=== PATIENT | female | born 1955 | race Caucasian/White ===

== ENCOUNTER → 2018-04-06 18:44 | Outpatient (REF) | payer BC, SELFPAY | LOC: LAB 18:44 | PROVIDERS: Visit Provider Dermatology MOHS-Micrographic Surgery | DX: Z48.817 Encounter for surgical aftercare following surgery on the skin and subcutaneous tissue (principal) | CPT/HCPCS: 87070; 87075; 87205 ==

== ENCOUNTER → 2022-12-15 09:34 | Outpatient (CLI) | payer BC, SELFPAY ==
--- NOTE | 2022-12-15 | DI.CT.S_ITS ---
PROCEDURE: CT LUMBAR SPINE WO CON INDICATIONS: Spinal stenosis lumbar TECHNIQUE: Noncontrast 3 mm thick sections acquired from the T12 level to the sacrum. Sagittal and coronal reformats were constructed. For radiation dose reduction, the following was used: automated exposure control. COMPARISON: None. FINDINGS: Image quality: Excellent. Bones: Degenerative grade 1 anterior spondylolisthesis L4-5. No acute vertebral body compression fractures. No suspicious lytic or blastic bony lesions. No pars defects. T12-L1: Unremarkable L1-L2: Disc height is preserved. Mild circumferential disc bulge. No central or foraminal stenosis. L2-L3: Mild disc space narrowing and circumferential disc bulge with hypertrophic facet joints. Mild central and no foraminal stenosis. L3-L4: Disc space narrowing with vacuum disc phenomena present. Disc bulge combines with hypertrophic facet joints and ligamentum flavum laxity to result in moderate central stenosis. Moderate bilateral foraminal stenosis L4-L5: Disc space narrowing and circumferential disc bulge with hypertrophic facet joints and ligamentum flavum laxity all combined result in severe central stenosis. Moderate bilateral foraminal stenosis L5-S1: Disc height is preserved. Mild central stenosis. Mild bilateral foraminal stenosis Soft tissues: No retroperitoneal masses or hematomas. Visualized aorta is normal in caliber. IMPRESSION: Multilevel degenerative disc disease and arthropathy results in varying degrees of central and foraminal stenosis including severe central stenosis L4-5 Approved by: Tristen Lozada M.D. on 12/15/2022 at 12:39
== END ==
PROVIDERS: Referring Provider Orthopaedic Surgery Orthopaedic Surgery of the Spine; Visit Provider Orthopaedic Surgery Orthopaedic Surgery of the Spine
DX: M48.062 Spinal stenosis, lumbar region with neurogenic claudication (principal); M51.36 Other intervertebral disc degeneration, lumbar region; M47.816 Spondylosis without myelopathy or radiculopathy, lumbar region
CPT/HCPCS: 72131

== ENCOUNTER 2023-05-25 10:48 | Inpatient (IN) | payer BC, MEDICARE, SELFPAY ==
[2023-05-12 07:32] VITALS: BMI 25.5
[2023-05-25] VITALS (16 sets, daily range): BP systolic 102–136; BP diastolic 44–84; PULSE 64–79; RESP 12–25; TEMP 36.2–36.8; O2SAT 93–100; BMI 25.5
[2023-05-25] MEDS: LACTATED RINGERS 1,000 ML 42 ML IV ×2 (11:45→14:20)
--- NOTE | 2023-05-25 12:23 | SUR.OPER ---
Prone on spine table, head in foam head support, padded chest and pelvic supports, gel pad at knees, lower legs supported by pillows; nipples, genitalia and toes free of pressure, arms secured on foam padded arm boards at <90 degrees abduction. Tape over blanket at thigh secured to table.
[2023-05-25] MEDS: CLINDAMYCIN 900 MG/50 ML PIGGYBACK 50 MG IV ×2 (13:14→23:07)
[2023-05-25] MEDS: BUPIVACAINE LIPOSOME 266 MG/20 ML VIAL INJ (13:27)
[2023-05-25] MEDS: BUPIVACAINE 0.25% W/ EPI (PF) 10 ML VIAL 20 ML INJ (13:28)
[2023-05-25 13:47] LABS: BUN Creatinine Ratio 24.1 (6-22); Blood Urea Nitrogen 13 mg/dL (7-17); Carbon Dioxide 21 mmol/L (22-32); Chloride 104 mmol/L (98-107); Estimated Glomerular Filt Rate > 60 mL/min (>60); Glucose 89 mg/dL (80-110); HEMOLYSIS < 15 (0-50); Potassium 3.4 mmol/L (3.4-5.1); Sodium 131 mmol/L (137-145)
--- NOTE | 2023-05-25 16:33 | DI.RAD.S_ITS ---
PROCEDURE: XR LUMBAR SPINE 2-3V INDICATIONS: L3-4, L4-5 TLIF ROBOT TECHNIQUE: Fluoroscopic guidance utilized for a surgical fusion COMPARISON: None. FINDINGS: Fluoroscopic images submitted for a surgical fusion L3 through L5. Please see operative note for further discussion. IMPRESSION: Fluoroscopic guidance. Dictated by: Shaun Vásquez M.D. on 05/25/2023 at 16:46 Approved by: Shaun Vásquez M.D. on 05/25/2023 at 16:47
--- NOTE | 2023-05-25 16:53 | P.OP_ITS ---
Operative Date/Time/Diagnoses Date of procedure: 05/25/23 Time of procedure: 13:00 Pre-op diagnosis: 1. L3-4, L4-5 spondylolisthesis 2. L3-4 far lateral disc herniation with radiculopathy Post-op diagnosis: same Procedure & Clinicians Procedure: 1. L3-4, L4-5 Postero-lateral and posterior interbody fusion 2. L3-4, L4-5 interbody cage placement. 3. L3-4, L4-5 decompressive laminectomy with bilateral facetecomies 4. L3-4, L4-5 Posterior segmental instrumentation 5. [place] of bone marrow from iliac crest 6. Utilization of microsurgical technique and operating microscope 7. Utilization of robotic assisted navigation Same procedure as scheduled: Yes Indications: Patient has been having chronic back pain and worsening lumbar radiculopathy, left worse than right. Patient was found have a L3-4 left far lateral disc herniation with foraminal stenosis causing radiculopathy as well as L3-4 L4-5 spondylolisthesis contributing to back pain and leg pain. Patient failed multiple conservative management with worsening pain weakness and numbness in her lower extremity. Patient has been having difficulty performing activity of daily living. After discussing risks benefits of treatment options, patient elected proceed with surgery. Surgeon: Shelly Camilo Water Resource Consultant: Vida Herrera Click Yes if Unassisted: No Anesthesia Type: General Operative Notes Closure Type: primary Specimen(s): none sent Prosthetic devices, grafts, tissues, transplants, or devices: Globus CREO MIS screws, Rise cages Applied: catheter Estimated Blood Loss (mL): 150 Blood products transfused: none Procedure in detail: Patient was seen in the preoperative area. Risks and benefits of the surgery was discussed with the patient. Informed consent was obtained from the patient and placed in the chart. Surgical site was marked. Patient was taken to the operative room. General anesthesia was administered. Prophylactic antibiotic was given to the patient less than 30 min before the incision was made. Patient was placed into a prone position on the Junior table. Patient's back was then prepped and draped in the sterile fashion. Time-out was performed at this time. After patient was prepped and draped, patient's PSIS was palpated and marked bilaterally. Small 1 cm incision was made over the PSIS for placement of the reference probes. Two trocar was placed into the PSIS 1 on each side. The reference probe was attached to the trocar of the reference apparatus. At this time the C-arm imaging was used to confirm AP and lateral of L3, L4-L5 vertebrae and merged the C-arm imaging using the AppwoRx robotic navigation system with the CT of the lumbar spine. After successful merging was completed and confirmed, skin marker was used to shama out the skin incision using the AppwoRx robotic arm. Bilateral incision was made at this time. Pre templated trajectory was used and guided using the AppwoRx robotic navigation system for bilateral L3 L4, L5 pedicle screw placement. This was done by using the robotic arm to guide the high-speed bur to make a cortical entry point. Next a drill was placed also using the robotic arm and guided using the navigation system drilling partially through bilateral L3, L4, L5 p edicles. Next L3, L4, L5 pedicle screws it was pre templated and measured was placed onto the power national flatbed truck driver and inserted into the pedicles bilaterally. After all 6 screws were placed C-arm imaging was taken of both AP and lateral to confirm the placement. Excellent placement of the screws were confirmed and a matched precisely with the pre planned screw placement using the navigation system. MARs retractor was inserted using [employer] guidence. Globus MARS retractors was placed inside the incision and docked onto the L3, L4 lamina. Using microsurgical technique and operating microscope, a L3, L4 laminectomy and L3-4, L4-5 facetectomy was performed using a [place] rongeur. The laminectomy and facetectomy was performed in order to decompress patient's cauda equina as well as the nerve roots exiting at the L3-4, L4-5 level. Patient was found have severe lateral recess and neural foramen stenosis which was fully decompressed after the laminectomy facetectomy. Patient was found have a large L3-4 left- sided far lateral disc herniation impinging on the L3 nerve root on the left side. After the diskectomy was completed there was no impingement of any sort on the left L3 nerve root. More than 75% of the facets were removed during the process of decompression rendering L3-4, L4-5 level grossly unstable and required a fusion procedure at the same time. The disc space at L3-4, L4-5 was identified, and a total diskectomy was performed at L3-4, L4-5 level. The endplates were decorticated using a rasp and shaver. The total diskectomy and decortication was performed at L3-4, L4-5 level in order to to accomplish a L3- 4, L4-5 fusion. The local bone from the laminectomy and facetectomy was saved for local bone grafting. After the total diskectomy and decortication was completed, Trifecta bone graft material was combined with local bone that was harvested earlier. At this time, a separate skin is incision was made over the iliac crest. A Jamshidi needle was inserted into the iliac crest through a separate skin incision. 5 cc of bone marrow aspiration was obtained through the separate skin incision using a Jamshidi needle from the iliac crest. The bone marrow aspiration was combined with local bone and the Trifecta bone grafting material. The bone grafting material was placed into the L3-4, L4-5 interbody space along with expandable cages. One cage each was inserted into the L3-4 L4-5 interbody space along with bone graft material. The cage was expanded to its maximum height using the torque limiting screwdriver. The disc preparation as well as the cage insertion were also performed under navigation guidance. After the cage was placed, AP and lateral C-arm imaging was taken to confirm placement of the cage and excellent position was confirmed. Globus MARS retractor was inserted and docked onto the L3-4, L4-5 posterolateral gutter on the right side. Using the power drill, posterior-lateral decortication was performed at L3-4, L4-5 level until bleeding cortical bone was identified. The remaining bone grafting material was placed into the L3-4, L4-5 posterior lateral gutter he order to accomplish posterolateral fusion at the L3- 4, L4-5 level. At this time the tulips were attached to the L3, L4-L5 pedicle screw shanks. After measuring the length of the rods, they were inserted into the tulips of the pedicle screws and locked in place using locking caps and torque limiting screwdriver bilaterally. Total 6 caps and 2 titanium rods was used in order to complete the posterior instrumentation construct. After all the hardware was placed, and confirmed with AP and lateral C-arm imaging, the wound was then irrigated with sterile normal saline and packed with Ray-Arslan gauze for 3 min to accomplish hemostasis. After the gauze was removed the deep fascia was closed with #1 Vicryl suture. The subcutaneous layer was closed with 2-0 Vicryl. The skin was closed with skin nazia. Patient tolerated the procedure well. There were no complications. The Operation could not have been safely performed without compromising the technical result or length of the procedure, without the assistance of a skilled surgical training specialist. The surgical training specialist was medically necessary for proper positioning, retraction and manipulation of instruments, proper exposure, surgical preparation, and manipulation of tissue. Neuro monitoring system was used to monitor patient's neurologic status throughout entire procedure. There was no disturbance of the neural monitoring signals throughout the case. Complications: none Post-operative Condition: stable Disposition: PACU Plan for aftercare: Admit to inpatient hospital
[2023-05-25] MEDS: hydrOXYzine 50 MG/ML INJ 25 MG IM (17:11)
[2023-05-25] MEDS: OXYCODONE IR 5 MG TABLET PO (17:11)
[2023-05-25] MEDS: GABAPENTIN 600 MG TABLET PO (17:19)
[2023-05-25] MEDS: LORazepam 0.5 MG TABLET PO (17:48)
[2023-05-25] MEDS: LORazepam 2 MG/ML INJ 0.25 MG IV ×2 (17:52→18:11)
[2023-05-25] MEDS: ACETAMINOPHEN IV 1,000 MG/100 ML VIAL 400 MG IV (18:06)
--- NOTE | 2023-05-25 19:17 | PC.NURSE ---
Pt arrived from PACU at 1847, VSS on 2L NC, very lethargic and will not open eyes but able to accurately answer some orientation questions, gauze and medipore dressing to back c/d/i. Sensation intact to bilat LE. Patient and spouse oriented to room and call light. Bed in low position, bed alarm activated, call light within reach, SCDs on.
[2023-05-25] MEDS: LACTATED RINGERS 1,000 ML 125 ML IV (20:14)
[2023-05-25] MEDS: BRIVARACETAM 25 MG 25 EACH PO (23:06)
[2023-05-25] MEDS: OXYCODONE IR 10 MG TABLET PO (23:45)
[2023-05-25] MEDS: ONDANSETRON 4 MG/2 ML INJ IV (23:46)
[2023-05-26] VITALS: BP 103/54; PULSE 77; RESP 16; TEMP 36.5; O2SAT 97
[2023-05-26 04:00] VITALS: BP 104/56; PULSE 74; RESP 15; TEMP 36.2; O2SAT 98
[2023-05-26 04:53] LABS: Hematocrit 34.6 % (36-46); Hemoglobin 11.7 g/dL (12.0-16.0)
[2023-05-26] MEDS: OXYCODONE IR 10 MG TABLET PO ×2 (04:58→08:36)
[2023-05-26] MEDS: CLINDAMYCIN 900 MG/50 ML PIGGYBACK 50 MG IV (04:59)
[2023-05-26] MEDS: ONDANSETRON 4 MG/2 ML INJ IV ×2 (05:01→17:20)
[2023-05-26 05:08] LABS: BUN Creatinine Ratio 15.9 (6-22); Blood Urea Nitrogen 10 mg/dL (7-17); Calcium 7.9 mg/dL (8.4-10.2); Carbon Dioxide 24 mmol/L (22-32); Chloride 105 mmol/L (98-107); Estimated Glomerular Filt Rate > 60 mL/min (>60); Glucose 98 mg/dL (80-110); HEMOLYSIS < 15 (0-50); Potassium 3.6 mmol/L (3.4-5.1); Sodium 132 mmol/L (137-145)
[2023-05-26] MEDS: LACTATED RINGERS 1,000 ML 125 ML IV (05:15)
[2023-05-26 08:51] VITALS: BP 106/48; PULSE 74; RESP 22; TEMP 36.9; O2SAT 94
--- NOTE | 2023-05-26 08:59 | PC.NURSE ---
Addendum entered by Concetta Carrillo R.N. 05/26/23 10:51: Blood Pressure medication held at this time as she has been running low. She also worked with physical therapy this am and she was orthostatic with a drop of 10 points. She is resting on her side now. Original Note: Patient is alert and oriented x4, she states that her pain is 10 but she is groggy. Patient requested only 5mg of po oxycodone, this is what was given to her along with her home medications. Patient states that she had a fall on her head about a year ago, she had a concussion and has since developed a seizure disorder. She does take medication for this. Back dressing is cdi, patient is tolerating some of her breakfast. She has not been up yet with physical therapy. at bedside, he is helpful with care of patient.
[2023-05-26] MEDS: ACETAMINOPHEN 325 MG TABLET 650 MG PO ×2 (09:10→17:23)
[2023-05-26] MEDS: ATORVASTATIN 20 MG TABLET PO (09:10)
[2023-05-26] MEDS: POTASSIUM CHLORIDE 20 MEQ TAB 40 MEQ PO (09:10)
[2023-05-26] MEDS: DOCUSATE 100 MG CAPSULE PO ×2 (09:11→20:03)
[2023-05-26] MEDS: BRIVARACETAM 25 MG 25 EACH PO ×2 (09:11→20:03)
--- NOTE | 2023-05-26 09:58 | OT.IP.EVAL ---
Current Diagnoses Spondylolisthesis, lumbar region (05/25/23) Spinal stenosis, lumbar region with neurogenic claudication (05/25/23) Surgery Performed Operation Date: 05/25/23 12:15 Actual Procedures p L3-4, L4-5 TLIF with posterior instrumentation -Robot - Shelly Camilo MD Past Medical History (Last Updated 05/12/23 @ 07:50 by Sandra Forman, RN) Asthma BCC (basal cell carcinoma) Cerebral aneurysm Depression DJD (degenerative joint disease) Epilepsy Fall (05/2022) History of COVID-19 (07/26/21) History of Mohs micrographic surgery for skin cancer HLD (hyperlipidemia) HTN (hypertension) Hx of syncope PMR (polymyalgia rheumatica) Seizures Surgical History (Last Updated 05/11/23 @ 13:27 by Sandra Forman, SONYA) History of arthroscopy of right shoulder History of loop recorder (03/01/23) History of surgical procedure (02/27/19) Hx of tonsillectomy Occupational Therapy Inpatient Evaluation/Re-Eval M1 PT/OT-IP Prior Functional Status Start: 05/26/23 09:38 Freq: NEEDED Status: Active Protocol: Document 05/26/23 12:23 CGR (Rec: 05/26/23 12:42 CGR [id number]) Medical Review Prior Functional Status Medical History Reviewed Yes Diet/Fluid Consistency Regular Communication WNLs per pt and Mobility and Gait I without AD in the home and store, limited ambulation tolerance Activities of Daily Living and IADL's Pt and report I with difficulty Social History Household Members spouse,children Living Arrangements House Number of Floors (Floors) Two Floors Number of Stairs To Enter/Railing? Pt can stay on one floor where there is a bed and half bath and there are 2 steps to enter with no rails Home Environment High Toilet,Walk in Shower, Built-In Shower Seat Home Equipment Front Wheel Walker,Straight Cane,Raised Toilet Seat Without Armrests,Hand Held Shower,Broach Setter,Grab Bars In Shower Employment Status Retired M2 OT-IP Current Condition Start: 05/26/23 12:23 Freq: Status: Active Protocol: Document 05/26/23 12:23 CGR (Rec: 05/26/23 12:42 CGR [id number]) Occupational Therapy Current Condition Current Condition Evaluation Date 03/14/24 Treatment Diagnosis L3-5 TLIF Diagnosis Onset Date 05/25/23 Post Operative Precautions Lumbar Precautions Log Roll,No Twisting,Limit Bending,Lifting Restriction of 10 lbs,Gait Belt above Incisional Area M3 OT- IP Subjective and Pain Start: 05/26/23 12:23 Freq: Status: Active Protocol: Document 05/26/23 12:23 CGR (Rec: 05/26/23 12:42 CGR [id number]) OT- Subjective Occupational Therapy Visit Type Type Initial Evaluation Visit Start Time 09:31 Visit Stop Time 09:58 Notes Pt's present throughout session. P.T. entered after OT had Pt sitting EOB. OT Pain Assessment Pain When Pain Assessed At Rest Pain Present Pain Present Denied Pain M4 OT- IP ADL's Start: 05/26/23 12:23 Freq: Status: Active Protocol: Document 05/26/23 12:23 CGR (Rec: 05/26/23 12:42 CGR [id number]) OT HLC-Hndf-Wuprgcy Comments OT Self-Feeding Comments not meal time OT ADL-Grooming Comments OT Grooming Comments not performed OT ADL-Oral Care Comments Oral Care Comments not performed OT ADL-Dressing General Eval Lower Body Dressing Ability Total Assistance Areas Needing Assistance Socks Comments OT Dressing Comments supine in bed OT ADL-Toileting General Evaluation Toileting Ability Total Assistance Comments OT Toileting Comments pt with dubon and aware that she has dubon OT ADL-Bathing Comments OT Bathing Comments not performed M5 OT- IP IADL's Start: 05/26/23 12:23 Freq: Status: Active Protocol: Document 05/26/23 12:23 CGR (Rec: 05/26/23 12:42 CGR [id number]) OT-Instrumental Activities of Daily Living Deficits IADL Deficits Identified Deficits Home Safety Awareness Awareness of Need for Assistance at Home Good Awareness Ability to Problem Solve Emergency Able to Problem Solve Situations Medication Management Medication Management Caregiver Administers Money Management Money Management Caregiver Provides Assistance Meal Preparation Meal Preparation Caregiver Provides Assist Ladle Filler Ladle Filler Caregiver Provides Assist Driving Driving Comments Pt does not drive at baseline d/t new onset seziures. M6 OT- IP Functional Cognition Start: 05/26/23 12:23 Freq: Status: Active Protocol: Document 05/26/23 12:23 CGR (Rec: 05/26/23 12:42 CGR [id number]) Cognitive Factors Limiting Selfcare Function Cognitive Ability Level of Alertness Alert Patient Orientation Name,Age,Birthday,Month,Date, Year,Day of Week,Place, Situation Attention Span Ability Capable of Focused Attention, Capable of Sustained Attention Cognitive Comments Cognitive Assessment Comments Pt was able to answer questions but was unable to follow directions with moving her body, even with simple directions like to reach towards a rail. OT- Vision and Hearing OT- Hearing Assessment OT- Hearing Assessment WFL OT- Vision Assessment Visual Acuity Glasses For Reading Visual Attentiveness WFL Occular Pursuits WFL M7 OT- IP Mobility and Balance Start: 05/26/23 12:23 Freq: Status: Active Protocol: Document 05/26/23 12:23 CGR (Rec: 05/26/23 12:42 CGR [id number]) OT- Bed Mobility Assessment Rolling Type of Rolling Log Rolling,Roll to Left Level of Assistance Total Assistance,1 Person Assistance Supine to Sit Supine to Sit Assist Total Assistance,1 Person Assistance Sit to Supine Sit to Supine Assist Total Assistance,2 Person Assistance Scooting Scooting to Edge of Bed Total Assistance,1 Person Assistance OT-Transfer Assessment Comments Mobility Comments Unable to attempt sit to stand d/t poor LE strength shown. OT- Gait Assessment Comments Gait Ability Comments not performed OT- Balance Assessment Sitting Balance and Reactions Static Sitting Balance Ability Poor Dynamic Sitting Balance Ability Poor Comments Other Balance Tests/Deviations/Treatment Pt needed generally mod assist : for sitting balance d/t almost extension type tone in sitting. With Encouragement she could perform for short amouts of time at [facility] M8 OT- IP Objective Assessments Start: 05/26/23 12:23 Freq: Status: Active Protocol: Document 05/26/23 12:23 CGR (Rec: 05/26/23 12:42 CGR [id number]) OT Gross Range of Motion Upper Extremity Range of Motion Assessment Within Functional Limits OT Strength Comments Strength Comments unable to perform as pt was unable to follow commands for body movements. OT- Coordination Assessment Comments Coordination Comments unable to perform as pt was unable to follow commands for body movements. OT Sensation Assessment Edema Edema Absent M9 OT- IP Assessment and Plan Start: 05/26/23 12:23 Freq: Status: Active Protocol: Document 05/26/23 12:23 CGR (Rec: 05/26/23 12:42 CGR [id number]) OT Summary Assessment and Plan Potential Rehabilitation Potential Good Analytic Complexity at Evaluation High Summary OT Impairments Pain,Strength,Balance, Coordination,Functional Cognition,Functional Mobility, Grooming,Dressing,Toileting, Bathing,Toilet Transfers, Shower Transfers,Activity Tolerance Progress Towards Goals Slow Progress due to Medical Issues Assessment Summary Pt presents as a high complexity evaluation s/p admit for L3-5 TLIF. Pt with abnormal extension through the core with sitting and with bed mobility. Pt was able to answer questions but was not able to consistently follow commands for body movement. Supine to sit was a total assist d/t pt fighting the movement dispite her saying that she understands not to do that. Pt sat EOB needed generally mod a for sitting balance again d/t extension of the core. When pt given hand rail to hold onto she was able to grasp it but then also extended arm and used it to push rather than pull. Current recommendation is for pt to plan for SNF given her current abilities. However, per pt's , pt was really aggressive when she came out of anaesthesia so she may be having a reaction that will improve with time. Will Continue to follow for OT services. Goals Self-Feeding Goal Independent Grooming Goal Independent Dressing Goal Independent,Broach Setter,Sock Aid Toileting Goal Independent Bathing Goal Independent Toilet Transfer Goal Independent Shower Transfer Goal Independent Patient/Caregiver Education Goal Demonstrate Post-Op Precautions Days to Meet Goals 15 Frequency of Treatment Frequency Of Treatment Once a Day Treatment Plan OT Treatment Plan ADL Training,Functional Cognition Training,Functional Mobility,Patient/Family Education,Discharge Planning Discharge Recommendations OT Discharge Recommendations SNF Rehab Transportation Needs at Discharge Stretcher/Ambulance
--- NOTE | 2023-05-26 10:18 | PT.IIE ---
Current Diagnoses Spondylolisthesis, lumbar region (05/25/23) Spinal stenosis, lumbar region with neurogenic claudication (05/25/23) Surgery Performed Operation Date: 05/25/23 12:15 Actual Procedures p L3-4, L4-5 TLIF with posterior instrumentation -Robot - Shelly Camilo MD Surgical History (Last Updated 05/11/23 @ 13:27 by Sandra Forman, RN) History of arthroscopy of right shoulder History of loop recorder (03/01/23) History of surgical procedure (02/27/19) Hx of tonsillectomy Medical History (Last Updated 05/12/23 @ 07:50 by Sandra Forman, RN) Asthma BCC (basal cell carcinoma) Cerebral aneurysm Depression DJD (degenerative joint disease) Epilepsy Fall (05/2022) History of COVID-19 (07/26/21) History of Mohs micrographic surgery for skin cancer HLD (hyperlipidemia) HTN (hypertension) Hx of syncope PMR (polymyalgia rheumatica) Seizures Physical Therapy Inpatient Evaluation/Re-Eval M1 PT/OT-IP Prior Functional Status Start: 05/26/23 09:38 Freq: NEEDED Status: Active Protocol: Document 05/26/23 09:40 MB (Rec: 05/26/23 10:18 MB [id number]) Medical Review Prior Functional Status Medical History Reviewed Yes Diet/Fluid Consistency Regular Communication WNLs per pt and Mobility and Gait I without AD in the home and store, limited ambulation tolerance Activities of Daily Living and IADL's Pt and report I Social History Household Members spouse,children Living Arrangements House Number of Floors (Floors) Two Floors Number of Stairs To Enter/Railing? Pt can stay on one floor where there is a bed and half bath and there are 2 steps to enter with no rails Home Environment Standard Height Toilet Home Equipment Front Wheel Walker,Straight Cane Additional Social History Comment OT obtaining further DME and social history and will put into EMR M2 PT-IP Current Condition Start: 05/26/23 09:38 Freq: NEEDED Status: Active Protocol: Document 05/26/23 09:40 MB (Rec: 05/26/23 10:18 MB [id number]) Physical Therapy Current Condition Current Condition Evaluation Date 05/26/23 Treatment Diagnosis S/p TLIF L3-5 M3 PT-IP Subjective Start: 05/26/23 09:38 Freq: NEEDED Status: Active Protocol: Document 05/26/23 09:40 MB (Rec: 05/26/23 10:18 MB [id number]) Subjective Physical Therapy Visit Type Type Initial Evaluation Visit Start Time 09:40 Visit Stop Time 09:55 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 of 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 0 Physical Therapy Visit Comments Patient Comments Pt is hypoverbal and does not have a lot of spontaneous conversation, does try to answer questions Therapy Pain Assessment Pain When Pain Assessed During Mobility Pain Present Pain Present Pain Reported Location back Intensity 7 Scale Used Vásquez-Watkins (Faces) Pain Behaviors Guarding Pain Management Techniques Modification of Treatment,Re- positioning M4 PT-IP Mobility and Gait Start: 05/26/23 09:38 Freq: NEEDED Status: Active Protocol: Document 05/26/23 09:40 MB (Rec: 05/26/23 10:18 MB [id number]) PT-Bed Mobility Assessment Rolling Type of Rolling Log Rolling Level of Assist Maximal Assistance,1 Person Assistance Supine to Sit Supine to Sit Total Assistance,1 Person Assistance Sit to Supine Sit to Supine Total Assistance,2 Person Assistance Scooting Scooting to Edge of Bed Dependent Scooting Up and Down in Bed Dependent PT-Transfer Assessment Comments Mobility Comments Pt is hypoverbal, has peaked appearance in face, is lethargic and tends to guard: pushing back with her arms with sitting, almost reflexive extension in nature. Sitting balance requires at least CGA and up to max to total assistance. She cannot straighten legs or move arms to lean forward when asked: very low motor facilitation ability and she is unable to try standing at this time. BP and HR in LUE in supine is 116 /59, 78 and sitting is 104/54, 82. When moved back to side lying with +2 assist, pt has no reflex to help reduce impact of her landing and tends to just fall with therapists assisting her. She does not use arms at all to help with the positioning. PT-Balance Assessment Sitting Balance and Reactions Static Sitting Balance Ability Poor Dynamic Sitting Balance Ability Poor M5 PT-IP Objective Assessments Start: 05/26/23 09:38 Freq: NEEDED Status: Active Protocol: Document 05/26/23 09:40 MB (Rec: 05/26/23 10:18 MB [id number]) Orientation Orientation/Cognition Level of Alertness Lethargic Orientation Name,Age,Birthday,Month,Date, Year,Day of Week,Place, Situation Language Function Ability No Deficits Noted Safety Awareness Decreased Safety Awareness Memory Description No Deficits Noted Comments Pt can answer orientation questions with increased time but does not appear to have proprioceptive and motor ability to follow functional commands this a.m. Gross Range of Motion Upper Extremity ROM Impairments Defer to OT Lower Extremity ROM Assessment Bilaterally Impaired Strength Lower Extremity Strength Assessment Bilaterally Impaired Comments Strength Comments Pt cannot follow range, MMT or sensory commands. She minimally extends each leg when asked sitting EOB Coordination Assessment Assessment Coordination Comments Pt cannot tolerate/respond to coordination testing Sensation Assessment Comments Sensation Comments Pt cannot tolerate/respond to coordination testing M6 PT-IP Treatment Start: 05/26/23 09:38 Freq: NEEDED Status: Active Protocol: Document 05/26/23 09:40 MB (Rec: 05/26/23 10:18 MB [id number]) Physical Therapy Treatment Education Education Provided Precautions,Post-Op Packet, Safety Other Treatments Other Treatment Performed PT enters after OT has stepped in and provided info about precautions and booklet M7 PT-IP Assessment and Plan Start: 05/26/23 09:38 Freq: NEEDED Status: Active Protocol: Document 05/26/23 09:40 MB (Rec: 05/26/23 10:18 MB [id number]) PT Summary Assessment and Plan Potential Rehabilitation Potential Fair Status of Condition at Evaluation Unstable Summary Impairments Pain,ROM,Strength,Balance, Coordination,Sensation,Bed Mobility,Transfers,Gait, Activity Tolerance Progress Towards Goals Slow Progress due to Pain,Slow Progress due to Medical Issues,Slow Progress due to Activity Tolerance,Slow Progress - Other Assessment Summary Pt is a 67 y/o female presenting A&O to cognitive questioning but without ability to tolerate or execute any simple functional or motor planning activities this morning. Her BP drops with supine and to sit and her coloring is peaked. She requires dependent assistance for bed mobility from 1-2 staff and cannot follow commands for knee extension in sitting to check functional strength before standing. Standing is not possible on eval. When moved back to side lying with 2 person assistance , pt does not have any anticipated normal reflexive movement of helping lower self with hands and rather falls to her side. She has extension type reflexive movement when sitting EOB and cannot shift weight forward or release hands to move them and requires max A to reposition hands. Recommed ongoing nsg and therapy efforts to mobilize pt when she is ready. Goals Bed Mobility Goal Independent Transfer Goal Independent,Front Wheeled Walker Gait Goal Independent,Front Wheel Walker Gait Distance 100 Other Goals Pt will ascend and descend 2 steps with LRAD and no more than CGA to allow safe home entrance. Days to Meet Goals 10 Frequency of Treatment Frequency Of Treatment Twice a Day Treatment Plan Physical Therapy Treatment Plan Bed Mobility Training,Transfer Training,Gait Training, Therapeutic Exercise,Balance Retraining,Post Op Education, Discharge Planning,Hot or Cold Pack,Neuromuscular Re-ed, Coordination Retraining,Manual Therapy Precautions Lumbar Precautions Log Roll,No Twisting,Limit Bending,Lifting Restriction of 10 lbs,Gait Belt above Incisional Area Weight Bearing Status Weight Bearing Status Weight Bear as Tolerated Recommendations To Nursing Amount of Assist Needed Mechanical Lift Discharge Recommendations PT Discharge Recommendations Home vs SNF,SNF vs Acute Rehab Other Discharge Recommendations Will benefit from ongoing acute PT to make further d/c recs. Currently, her cannot manage her at home. Hopefully, she will be able to mobilize better soon. Transportation Needs at Discharge Wheelchair/Cabulance,Stretcher /Ambulance
--- NOTE | 2023-05-26 10:24 | PM.PNPO.1 ---
Subjective Subjective Interval history: Bri is a 67 year old female who is POD#1 s/p L3-4, L4-5 Postero-lateral and posterior interbody fusion with decompressive laminectomy with bilateral facetecomies by Dr. Camilo. Patient reports overall she is doing well, pain is mild and well-controlled oral pain medication. She has been given oxycodone 10 mg but feels it is too strong for her as she has been very sedated and lethargic with this dosing. She also reports she still has some residual lower extremity weakness that she feels it is from the anesthetic. Reports the numbness and tingling in her bilateral lower extremities has improved significantly since before surgery. Patient does have Dubon catheter in place as she has not been out of bed. She was able to sit up and stand at the bedside 1x but has not had much movement other than this due to sedation. She has been seen by both OT and PT. Denies fever, chills, nausea, vomiting, SOB, chest pain. Exam Vital Signs (past 8 hours): - 05/26/23 04:00 05/26/23 08:51 05/26/23 08:55 Temperature 97.1 F L 98.5 F Pulse Rate 74 74 Respiratory Rate 15 22 Blood Pressure 104/56 L 106/48 L Pulse Oximetry 98 94 Oxygen Delivery Method Room Air Oxygen Flow Rate 2 3 Fraction of Inspired Oxygen 28 SaO2/FiO2 Ratio 353 Oxygen Delivery Method Room Air Oxygen Flow Rate 3 Narrative Exam Narrative: Patient very sleepy during interview today. She is lying in bed comfortably. Const General: cooperative, healthy appearing and comfortable Cardio Rate: regular rate Other: Brisk capillary refill. Skin Other: Dressings clean dry and intact. Neuro Other: Sensation intact to light touch to her bilateral lower extremities. Wiggles all toes equally bilaterally. Psych Other: Lethargic but oriented 4x. Objective Labs 05/26/23 04:47 05/26/23 04:47 Labs: Laboratory Results - last 24 hr 05/25/23 05/26/23 12:20 04:47 Hgb 11.7 L Hct 34.6 L Sodium 131 L 132 L Potassium 3.4 3.6 Chloride 104 105 Carbon Dioxide 21 L 24 BUN 13 10 Creatinine 0.54 0.63 Estimated GFR > 60 > 60 BUN/Creatinine Ratio 24.1 H 15.9 Glucose 89 98 Calcium 9.0 7.9 L NT-Pro-B Natriuret Pep Cancelled [facility] Medical History (Updated 05/12/23 @ 07:50 by Sandra Forman RN) PMR (polymyalgia rheumatica) History of COVID-19 (07/26/21) Fall (05/2022) Depression History of Mohs micrographic surgery for skin cancer BCC (basal cell carcinoma) Hx of syncope HLD (hyperlipidemia) HTN (hypertension) Asthma Seizures DJD (degenerative joint disease) Cerebral aneurysm Epilepsy Surgical History (Updated 05/11/23 @ 13:27 by Sandra Forman RN) History of arthroscopy of right shoulder Hx of tonsillectomy History of surgical procedure (02/27/19) History of loop recorder (03/01/23) Social History household members: spouse and children Smoking Status: Never smoker alcohol intake: former Assessment & Plan Post-op Postoperative Procedures: Procedures Operation Date: 05/25/23 12:15 Actual Procedure Side Surgeon p L3-4, L4-5 TLIF with posterior instrumentation -Robot Shelly Camilo MD Postoperative day: 1 Postoperative status narrative: Stable, good pain control but very lethargic Postoperative plan narrative: I will reduce Oxycodone to 1/2-1 tablet PO 5mg Q4-6 hours PRN moderate-severe pain to help reduce lethargy. 1) Continue to work with PT/OT on mobility. Can remove dubon once patient is able to ambulate to the bathroom. 2) Keep dressings clean and dry. 3) No twisting, deep bending or lifting more than 10lbs. 4) Follow up at [facility] [place] 2 [place] for post-op appt and staple removal. We will plan to d/c to home tomorrow with pending voiding trial, increased cognition and improved mobility. Quality VTE Deep Vein Thrombosis/Pulmonary Embolism Present on Admission: No
[2023-05-26] MEDS: OXYCODONE IR 10 MG TABLET 5 MG PO ×3 (13:18→22:03)
--- NOTE | 2023-05-26 13:45 | PT.IPTN ---
Current Diagnoses Spondylolisthesis, lumbar region (05/25/23) Spinal stenosis, lumbar region with neurogenic claudication (05/25/23) Surgery Performed Operation Date: 05/25/23 12:15 Actual Procedures p L3-4, L4-5 TLIF with posterior instrumentation -Robot - Shelly Camilo MD Physical Therapy Treatment Note M2 PT-IP Current Condition Start: 05/26/23 09:38 Freq: NEEDED Status: Active Protocol: Document 05/26/23 09:40 MB (Rec: 05/26/23 10:18 MB [id number]) Physical Therapy Current Condition Current Condition Evaluation Date 05/26/23 Treatment Diagnosis S/p TLIF L3-5 M3 PT-IP Subjective Start: 05/26/23 09:38 Freq: NEEDED Status: Active Protocol: Document 05/26/23 14:17 TS (Rec: 05/26/23 14:40 TS [id number]) Subjective Physical Therapy Visit Type Type Treatment Note Visit Start Time 13:45 Visit Stop Time 14:15 Notes BP in sitting 122/57 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 She does report nausea sitting EOB and in standing and a fear of falling . Pt is agreeable to PT. Therapy Pain Assessment Pain When Pain Assessed During Mobility Pain Present Pain Present Pain Reported M4 PT-IP Mobility and Gait Start: 05/26/23 09:38 Freq: NEEDED Status: Active Protocol: Document 05/26/23 14:17 TS (Rec: 05/26/23 14:40 TS [id number]) PT-Bed Mobility Assessment Rolling Type of Rolling Log Rolling,Roll to Left Level of Assist Minimal Assistance,1 Person Assistance Supine to Sit Supine to Sit Maximum Assistance,1 Person Assistance Sit to Supine Sit to Supine Moderate Assistance,2 Person Assistance Scooting Scooting to Edge of Bed Moderate Assistance Scooting Up and Down in Bed Dependent PT-Transfer Assessment Sit to and From Stand Sit to and from Stand Moderate Assistance,1 Person Assistance,Use of Upper Extremities Equipment Transfer Assistive Device Gait Belt,Front Wheeled Walker Orthotic/Prosthetic Devices or Brace: No Comments Mobility Comments Logroll to L side Sneha with cues for use of handrails and sequencing. Supine to sit MaxA with max cues for squencing, pt expresses fear of falling, spouse assists pt to sitting upright in bed. Pt sat EOB, BP 122/57, pt reports some dizziness and history of vertigo. STS from bed ModA x1 with FWW, pt has soft knees and with some buckling. Pt stood ~1min, had some shakiness and reported some nausea. pt requested back to bed. Sit to supine ModA x2 with assist from spouse. Pt was left back in bed, all needs met, spouse in room, RN notified. PT-Balance Assessment Sitting Balance and Reactions Static Sitting Balance Ability Fair Dynamic Sitting Balance Ability Fair Standing Balance and Reactions Static Standing Balance Ability Poor Dynamic Standing Balance Ability Poor Device Used FWW M5 PT-IP Objective Assessments Start: 05/26/23 09:38 Freq: NEEDED Status: Active Protocol: Document 05/26/23 09:40 MB (Rec: 05/26/23 10:18 MB [id number]) Orientation Orientation/Cognition Level of Alertness Lethargic Orientation Name,Age,Birthday,Month,Date, Year,Day of Week,Place, Situation Language Function Ability No Deficits Noted Safety Awareness Decreased Safety Awareness Memory Description No Deficits Noted Comments Pt can answer orientation questions with increased time but does not appear to have proprioceptive and motor ability to follow functional commands this a.m. Gross Range of Motion Upper Extremity ROM Impairments Defer to OT Lower Extremity ROM Assessment Bilaterally Impaired Strength Lower Extremity Strength Assessment Bilaterally Impaired Comments Strength Comments Pt cannot follow range, MMT or sensory commands. She minimally extends each leg when asked sitting EOB Coordination Assessment Assessment Coordination Comments Pt cannot tolerate/respond to coordination testing Sensation Assessment Comments Sensation Comments Pt cannot tolerate/respond to coordination testing M6 PT-IP Treatment Start: 05/26/23 09:38 Freq: NEEDED Status: Active Protocol: Document 05/26/23 14:17 TS (Rec: 05/26/23 14:40 TS [id number]) Physical Therapy Treatment Education Education Provided Precautions,Post-Op Packet, Safety M7 PT-IP Assessment and Plan Start: 05/26/23 09:38 Freq: NEEDED Status: Active Protocol: Document 05/26/23 14:17 TS (Rec: 05/26/23 14:40 TS [id number]) PT Summary Assessment and Plan Potential Rehabilitation Potential Fair Summary Impairments Pain,ROM,Strength,Balance, Coordination,Sensation,Bed Mobility,Transfers,Gait, Activity Tolerance Progress Towards Goals Slow Progress due to Pain,Slow Progress due to Medical Issues,Slow Progress due to Activity Tolerance,Slow Progress - Other Assessment Summary Bri continues to make slow progress with her mobility. She is ModA-MaxA for bed mobility and requires max cues for bed mobility techniques. She came into standing this session but became very weak and had some nausea, she requested back to bed. She does express some fear of falling while in bed and in standing. At this time PT will continue to recommend Home vs SNF vs Acute rehab. She has a supportive spouse who assisted her with bed mobility and STS this session. Pt does not want to go to rehab and would like to return home. Expect pt will improve enough to go home but is uncertain at this time. Goals Bed Mobility Goal Independent Transfer Goal Independent,Front Wheeled Walker Gait Goal Independent,Front Wheel Walker Gait Distance 100 Other Goals Pt will ascend and descend 2 steps with LRAD and no more than CGA to allow safe home entrance. Days to Meet Goals 10 Frequency of Treatment Frequency Of Treatment Twice a Day Treatment Plan Physical Therapy Treatment Plan Bed Mobility Training,Transfer Training,Gait Training, Therapeutic Exercise,Balance Retraining,Post Op Education, Discharge Planning,Hot or Cold Pack,Neuromuscular Re-ed, Coordination Retraining,Manual Therapy Precautions Lumbar Precautions Log Roll,No Twisting,Limit Bending,Lifting Restriction of 10 lbs,Gait Belt above Incisional Area Weight Bearing Status Weight Bearing Status Weight Bear as Tolerated Recommendations To Nursing Amount of Assist Needed 2 Person Assist Discharge Recommendations PT Discharge Recommendations Home vs SNF,SNF vs Acute Rehab Other Discharge Recommendations Will benefit from ongoing acute PT to make further d/c recs. Transportation Needs at Discharge Wheelchair/Cabulance,Stretcher /Ambulance
--- NOTE | 2023-05-26 14:32 | CM.DANOTE ---
DCP Assessment Note Pt is a 67yo F, resident of [place], presented s/p L3-4, L4-5 TLIF. Pt lives with spouse (has obtained FMLA to support pt during recovery). PCP: Chandu Toro Payer: [facility] Out of [facility] and Medicare (Part A) Reviewed chart and team rounds for pt's medical status and initial discharge needs. LIMEHOUSE WORKER met w/patient and spouse, Tristen, at bedside; introduced self and role. Pt was found lying lateral recumbent in bed, alert and oriented. Pt and were able to express preferences and report on acquired DMEs for discharge home (they have a walking cane and a 2-wheeled FWW, an airbed placed on first level of their home for easier access). Pt expressed she is not interested in SNF placement even though it has been initially recommended and anticipates anesthesia from her surgery will wear off and will be closer to independent baseline; hoping to discharge home with home health. 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 Plan: Pending PT/OT further recommendations. CM team will plan to follow clinical course closely for assessment of need and coordination of discharge plan. CAROLE Waggoner Discharge Planning/Care Management CM Discharge Assessment Start: 05/26/23 14:24 Freq: Status: Active Protocol: Document 05/26/23 14:24 MW (Rec: 05/26/23 14:30 MW [id number]) Discharge Planning Assessment Assigned Humanities Instructor CAROLE Willams DPOA/Assigned Designee Name Arvin Ramon Contact Information [phone] Advance Directives? Yes Advance Directives on File No History Provided By Patient,Family Member,Medical Record Has Patient been admitted in last 30 No days? Prior Living Arrangements House Household Members spouse,children Type of transporation used prior to Drives own vehicle admit Independent with ADL's Yes Is patient alert and oriented? Yes Caregiver for Another No DME Already Rented / Owned FWW / Walker,Cane Patient/Family Preference Home with Home Health Comment Pt declined to be referred to any SNFs and is open to HH if necessary. Barriers to Discharge No Discharge Plan Home with Home Health Transportation Arrangement Family/Spouse will provide transport. SNF/HH Preference Declining SNF referral. 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 Will follow up on agency preference tomorrow. Whiteboard Updated in Patient Room with Yes name and ext. # of Humanities Instructor Please Provide Date Initial DC 05/26/23 Assessment Was Performed Next Review Type Continued Stay Review
[2023-05-26 19:00] VITALS: O2SAT 95
[2023-05-26 19:25] VITALS: PULSE 84; O2SAT 92
[2023-05-26] MEDS: SENNOSIDES 8.6 MG TABLET 17.2 MG PO (20:03)
[2023-05-26 22:00] VITALS: BP 125/60; PULSE 81; RESP 18; TEMP 37.6; O2SAT 95
[2023-05-27] MEDS: OXYCODONE IR 10 MG TABLET 5 MG PO ×2 (00:34→05:47)
[2023-05-27] MEDS: ACETAMINOPHEN 325 MG TABLET 650 MG PO ×2 (00:34→09:50)
[2023-05-27] MEDS: ONDANSETRON 4 MG/2 ML INJ IV (05:50)
[2023-05-27] MEDS: LORATADINE 10 MG TABLET PO (06:26)
[2023-05-27] MEDS: BRIVARACETAM 25 MG 25 EACH PO (07:48)
[2023-05-27 07:55] VITALS: O2SAT 95
[2023-05-27 07:58] VITALS: BP 140/67; PULSE 85
--- NOTE | 2023-05-27 08:47 | PT.IPTN ---
Current Diagnoses Spondylolisthesis, lumbar region (05/25/23) Spinal stenosis, lumbar region with neurogenic claudication (05/25/23) Surgery Performed Operation Date: 05/25/23 12:15 Actual Procedures p L3-4, L4-5 TLIF with posterior instrumentation -Robot - Shelly Camilo MD Physical Therapy Treatment Note M2 PT-IP Current Condition Start: 05/26/23 09:38 Freq: NEEDED Status: Active Protocol: Document 05/26/23 09:40 MB (Rec: 05/26/23 10:18 MB [id number]) Physical Therapy Current Condition Current Condition Evaluation Date 05/26/23 Treatment Diagnosis S/p TLIF L3-5 M3 PT-IP Subjective Start: 05/26/23 09:38 Freq: NEEDED Status: Active Protocol: Document 05/27/23 09:16 TS (Rec: 05/27/23 09:46 TS [id number]) Subjective Physical Therapy Visit Type Type Treatment Note Visit Start Time 08:47 Visit Stop Time 09:15 Number of COIL WINDER HAND Visits 2 Physical Therapy Visit Comments Patient Comments Pt found on side attempting to sit EOB with nursing and spouse, pt is agreeable to PT. Therapy Pain Assessment Pain When Pain Assessed During Mobility Pain Present Pain Present Pain Reported M4 PT-IP Mobility and Gait Start: 05/26/23 09:38 Freq: NEEDED Status: Active Protocol: Document 05/27/23 09:16 TS (Rec: 05/27/23 09:46 TS [id number]) PT-Bed Mobility Assessment Supine to Sit Supine to Sit Maximum Assistance,1 Person Assistance Scooting Scooting to Edge of Bed Moderate Assistance PT-Transfer Assessment Sit to and From Stand Sit to and from Stand Minimal Assistance,Moderate Assistance,1 Person Assistance ,Use of Upper Extremities Equipment Transfer Assistive Device Gait Belt,Front Wheeled Walker Orthotic/Prosthetic Devices or Brace: No Comments Mobility Comments Supine to sit MaxA from spouse for uprighting trunk, pt requires max cues for sequencing. She required ModA for scooting to EOB with use of transfer pad, pt has limited strength to scoot hips on bed. Pt sat EOB CGA/SBA, BP in sitting 123/65, pt reports nausea and dizziness. STS from bed ModA/Sneha to stand, pt is slow to stand, has improved quad act this session. Pt ambulated ~20'Sneha with FWW, pt became increasingly dizzy and requested to sit. She required Sneha for turns with FWW to sit in chair. Pt stood again Sneha from chair and spouse assist with FWW, BP in standing 108/59, pt c/o of conitnued dizziness, sat bakc in chair. Pt was left in chair , all needs met, RN notified. Gait Assessment Gait Gait Assistance Required: Minimum Assistance,1 Person Assist Distance (Feet) 20 Assistive Devices Assistive Device Gait Belt,Front Wheeled Walker Orthotic/Prosthetic Devices or Brace: No Gait Deviations General Gait Pattern Antalgic,Decreased Stride Length,Decreased Feet Clearance,Step-to Gait Factors Limiting Gait Function Factors Limiting Gait Function Decreased Activity Tolerance, Decreased Strength,Pain,Poor Balance,Poor Safety Awareness Comments Gait Comments See mobility comments Stair Climbing Assessment Comments Stair Climbing Comments Not appropriate for stairs at this time PT-Balance Assessment Sitting Balance and Reactions Static Sitting Balance Ability Fair Dynamic Sitting Balance Ability Fair Standing Balance and Reactions Static Standing Balance Ability Fair Dynamic Standing Balance Ability Fair Device Used FWW M5 PT-IP Objective Assessments Start: 05/26/23 09:38 Freq: NEEDED Status: Active Protocol: Document 05/26/23 09:40 MB (Rec: 05/26/23 10:18 MB [id number]) Orientation Orientation/Cognition Level of Alertness Lethargic Orientation Name,Age,Birthday,Month,Date, Year,Day of Week,Place, Situation Language Function Ability No Deficits Noted Safety Awareness Decreased Safety Awareness Memory Description No Deficits Noted Comments Pt can answer orientation questions with increased time but does not appear to have proprioceptive and motor ability to follow functional commands this a.m. Gross Range of Motion Upper Extremity ROM Impairments Defer to OT Lower Extremity ROM Assessment Bilaterally Impaired Strength Lower Extremity Strength Assessment Bilaterally Impaired Comments Strength Comments Pt cannot follow range, MMT or sensory commands. She minimally extends each leg when asked sitting EOB Coordination Assessment Assessment Coordination Comments Pt cannot tolerate/respond to coordination testing Sensation Assessment Comments Sensation Comments Pt cannot tolerate/respond to coordination testing M6 PT-IP Treatment Start: 05/26/23 09:38 Freq: NEEDED Status: Active Protocol: Document 05/27/23 09:16 TS (Rec: 05/27/23 09:46 TS [id number]) Physical Therapy Treatment Education Education Provided Precautions,Post-Op Packet, Safety M7 PT-IP Assessment and Plan Start: 05/26/23 09:38 Freq: NEEDED Status: Active Protocol: Document 05/27/23 09:16 TS (Rec: 05/27/23 09:46 TS [id number]) PT Summary Assessment and Plan Potential Rehabilitation Potential Fair Summary Impairments Pain,ROM,Strength,Balance, Coordination,Sensation,Bed Mobility,Transfers,Gait, Activity Tolerance Progress Towards Goals Slow Progress due to Pain,Slow Progress due to Medical Issues,Slow Progress due to Activity Tolerance,Slow Progress - Other Assessment Summary Bri is making some progress with her mobility but continues to be slow. She is MaxA for supine to sit from spouse and requires max cues for sequencing. She performed STS x2 ModA/Sneha with use of FWW and assist from spouse. She progressed her gait to ~20 'Sneha with FWW. She continues have some dizziness and nausea with her mobility and hypptensive. PT is recommending Home with 24/7 assist and HHPT at this time when medically stable. She has a very supportive spouse who is comfortable assisting her at home. Will attempt to have pt perform stais this afternoon, she is not appropriate at this time. Goals Bed Mobility Goal Independent Transfer Goal Independent,Front Wheeled Walker Gait Goal Independent,Front Wheel Walker Gait Distance 100 Other Goals Pt will ascend and descend 2 steps with LRAD and no more than CGA to allow safe home entrance. Days to Meet Goals 10 Frequency of Treatment Frequency Of Treatment Twice a Day Treatment Plan Physical Therapy Treatment Plan Bed Mobility Training,Transfer Training,Gait Training, Therapeutic Exercise,Balance Retraining,Post Op Education, Discharge Planning,Hot or Cold Pack,Neuromuscular Re-ed, Coordination Retraining,Manual Therapy Precautions Lumbar Precautions Log Roll,No Twisting,Limit Bending,Lifting Restriction of 10 lbs,Gait Belt above Incisional Area Weight Bearing Status Weight Bearing Status Weight Bear as Tolerated Recommendations To Nursing Amount of Assist Needed 2 Person Assist Discharge Recommendations PT Discharge Recommendations Home with 24/7 Assist Available,Home Health Other Discharge Recommendations Will benefit from ongoing acute PT to make further d/c recs. Transportation Needs at Discharge Private Vehicle
[2023-05-27] MEDS: OXYCODONE IR 5 MG TABLET PO ×2 (09:49→14:01)
--- NOTE | 2023-05-27 10:33 | PM.PNPO.1 ---
Subjective Subjective Interval history: UPDATE: Patient is now feeling significantly more cognizant, worked with PT and was able to walk the hallways. Her dubon was removed and she was able to urinate on her own. She now feels alert and mobile enough to d/c to home today.She has walker and bedise commode at home, outpatient Rxs were sent to her retail pharmacy today. Will discharge patient to home today. post-op diagnosis: stable s/p L3-4 and L4-5 TLIF. Status: Stable. Hospital course: Hospital course complicated by post-op sedation. Bri is POD#2 s/p L3-4, L4-5 Postero-lateral and posterior interbody fusion with decompressive laminectomy with bilateral facetecomies by Dr. Camilo. Pain is mild-moderate but well controlled with oral oxycodone 5mg. Feeling less sedated with decrease in narcotic pain medication yesterday. Patient does have Dubon catheter in place still as she has not been out of bed much. She was able to sit up and stand at the bedside 1x yesterday and worked with PT today where she was able to walk to the window of her room and back to bed but has not been up more than this. Does not feel she could make it to the bathroom to urinate on her own. She has been seen by both OT and PT today. Denies fever, chills, nausea, vomiting, SOB, chest pain. Operative Date/Time/Diagnoses Date of procedure: 05/25/23 Time of procedure: 13:00 Pre-op diagnosis: 1. L3-4, L4-5 spondylolisthesis 2. L3-4 far lateral disc herniation with radiculopathy Post-op diagnosis: same Procedure & Clinicians Procedure: 1. L3-4, L4-5 Postero-lateral and posterior interbody fusion 2. L3-4, L4-5 interbody cage placement. 3. L3-4, L4-5 decompressive laminectomy with bilateral facetecomies 4. L3-4, L4-5 Posterior segmental instrumentation 5. [place] of bone marrow from iliac crest 6. Utilization of microsurgical technique and operating microscope 7. Utilization of robotic assisted navigation Same procedure as scheduled: Yes Indications: Patient has been having chronic back pain and worsening lumbar radiculopathy, left worse than right. Patient was found have a L3-4 left far lateral disc herniation with foraminal stenosis causing radiculopathy as well as L3-4 L4-5 spondylolisthesis contributing to back pain and leg pain. Patient failed multiple conservative management with worsening pain weakness and numbness in her lower extremity. Patient has been having difficulty performing activity of daily living. After discussing risks benefits of treatment options, patient elected proceed with surgery. Surgeon: Shelly Camilo Crate Builder: Vida Herrera Click Yes if Unassisted: No Anesthesia Type: General Exam Vital Signs (past 8 hours): - 05/27/23 07:55 05/27/23 07:58 05/27/23 08:29 Pulse Rate 85 Blood Pressure 140/67 Pulse Oximetry 95 Oxygen Delivery Method Room Air Room Air Fraction of Inspired Oxygen 21 SaO2/FiO2 Ratio 438 Oxygen Delivery Method Room Air Oxygen Flow Rate 1 Narrative Exam Narrative: Patient is lyign in bed comfortably during interview today. She appears less lethargic than when I saw her yesterday but still sleepy. Const General: cooperative, healthy appearing and comfortable Resp Effort & Inspection: normal respiratory effort and able to speak in complete sentences Cardio Rate: regular rate Other: Brisk capillary refill. Skin Other: Dressings intact, clean and dry with mild bloody discharge on the left, inferior dressing. Neuro Other: Sensation intact to light touch to her bilateral lower extremities. Wiggles all toes equally bilaterally. 5/5 strength with DF, PF, EHL. calves soft and non-tender.-SCDs in place. Psych Other: Awake, alert and oriented 4x. Objective Labs 05/26/23 04:47 05/26/23 04:47 [facility] Medical History (Updated 05/12/23 @ 07:50 by Sandra Forman RN) PMR (polymyalgia rheumatica) History of COVID-19 (07/26/21) Fall (05/2022) Depression History of Mohs micrographic surgery for skin cancer BCC (basal cell carcinoma) Hx of syncope HLD (hyperlipidemia) HTN (hypertension) Asthma Seizures DJD (degenerative joint disease) Cerebral aneurysm Epilepsy Surgical History (Updated 05/11/23 @ 13:27 by Sandra Forman RN) History of arthroscopy of right shoulder Hx of tonsillectomy History of surgical procedure (02/27/19) History of loop recorder (03/01/23) Social History household members: spouse and children Smoking Status: Never smoker alcohol intake: former Assessment & Plan Post-op Postoperative Procedures: Procedures Operation Date: 05/25/23 12:15 Actual Procedure Side Surgeon p L3-4, L4-5 TLIF with posterior instrumentation -Robot Shelly Camilo MD Postoperative day: 2 Postoperative plan narrative: Need to continue to work on mobility so patient can be d/c to home. Remove Dubon catheter once patient can ambulate safely. 1) Continue multimodal pain management with low dose opioid medication only to avoid further sedation. 2) Keep dressing intact, clean and dry. 3) No twisting, deep bending or lifting more than 10lbs. 4) Follow up at [facility] in 2 weeks for post-op appt and staple removal. We will plan to d/c to home with pending voiding trial, increased cognition and improved mobility. Quality VTE Deep Vein Thrombosis/Pulmonary Embolism Present on Admission: No
--- NOTE | 2023-05-27 10:52 | OT.IP.TRT ---
Current Diagnoses Spondylolisthesis, lumbar region (05/25/23) Spinal stenosis, lumbar region with neurogenic claudication (05/25/23) Surgery Performed Operation Date: 05/25/23 12:15 Actual Procedures p L3-4, L4-5 TLIF with posterior instrumentation -Robot - Shelly Camilo MD Occupational Therapy Treatment Note M2 OT-IP Current Condition Start: 05/26/23 12:23 Freq: Status: Active Protocol: Document 05/26/23 12:23 CGR (Rec: 05/26/23 12:42 CGR [id number]) Occupational Therapy Current Condition Current Condition Evaluation Date 05/26/23 Treatment Diagnosis L3-5 TLIF Diagnosis Onset Date 05/25/23 Post Operative Precautions Lumbar Precautions Log Roll,No Twisting,Limit Bending,Lifting Restriction of 10 lbs,Gait Belt above Incisional Area M3 OT- IP Subjective and Pain Start: 05/26/23 12:23 Freq: Status: Active Protocol: Document 05/27/23 10:50 [facility] (Rec: 05/27/23 10:59 [facility] [id number]) OT- Subjective Occupational Therapy Visit Type Type Treatment Note Visit Start Time 10:13 Visit Stop Time 10:52 Occupational Therapy Visit Comments Patient Comments Pt not wanting to get up at this time, pt and her agreed to go over OT equipment and needs. Patient/Caregiver Goals To go home. OT Pain Assessment Pain When Pain Assessed At Rest Pain Present Pain Present Pain Reported M4 OT- IP ADL's Start: 05/26/23 12:23 Freq: Status: Active Protocol: Document 05/27/23 10:50 CCC (Rec: 05/27/23 10:59 [facility] [id number]) OT [id number] Comments OT Self-Feeding Comments Pt states has not been hungry and eating minimally. OT ADL-Grooming General Evaluation Grooming Ability Standby Assistance Areas Needing Assistance Retrieving/Set-up of Grooming Items Comments OT Grooming Comments While in bed. OT ADL-Oral Care General Eval Oral Care Ability Independent OT ADL-Dressing Comments OT Dressing Comments Spoke on sock aid use and pt states her will just assist her. Educated pt to dress her weak side first and take out last. OT ADL-Toileting Comments OT Toileting Comments Spoke on getting a BCS and use of pads at night. OT ADL-Bathing Comments OT Bathing Comments Suggested since pt will not has access to the shower upstairs to try to shower or at least sponge off with nursing would be beneficial. M5 OT- IP IADL's Start: 05/26/23 12:23 Freq: Status: Active Protocol: Document 05/26/23 12:23 CGR (Rec: 05/26/23 12:42 CGR [id number]) OT-Instrumental Activities of Daily Living Deficits IADL Deficits Identified Deficits Home Safety Awareness Awareness of Need for Assistance at Home Good Awareness Ability to Problem Solve Emergency Able to Problem Solve Situations Medication Management Medication Management Caregiver Administers Money Management Money Management Caregiver Provides Assistance Meal Preparation Meal Preparation Caregiver Provides Assist Safety Grooving Machine Operator Safety Grooving Machine Operator Caregiver Provides Assist Driving Driving Comments Pt does not drive at baseline d/t new onset seizures. M6 OT- IP Functional Cognition Start: 05/26/23 12:23 Freq: Status: Active Protocol: Document 05/27/23 10:50 [facility] (Rec: 05/27/23 10:59 [facility] [id number]) Cognitive Factors Limiting Selfcare Function Cognitive Comments Cognitive Assessment Comments Intact but a little slow as still a little groggy. M8 OT- IP Objective Assessments Start: 05/26/23 12:23 Freq: Status: Active Protocol: Document 05/26/23 12:23 CGR (Rec: 05/26/23 12:42 CGR [id number]) OT Gross Range of Motion Upper Extremity Range of Motion Assessment Within Functional Limits OT Strength Comments Strength Comments unable to perform as pt was unable to follow commands for body movements. OT- Coordination Assessment Comments Coordination Comments unable to perform as pt was unable to follow commands for body movements. OT Sensation Assessment Edema Edema Absent M9 OT- IP Assessment and Plan Start: 05/26/23 12:23 Freq: Status: Active Protocol: Document 05/27/23 10:50 [facility] (Rec: 05/27/23 10:59 [facility] [id number]) OT Summary Assessment and Plan Potential Rehabilitation Potential Good Analytic Complexity at Evaluation High Summary OT Impairments Pain,Strength,Balance, Coordination,Functional Cognition,Functional Mobility, Grooming,Dressing,Toileting, Bathing,Toilet Transfers, Shower Transfers,Activity Tolerance Progress Towards Goals Slow Progress due to Medical Issues,Slow Progress due to Activity Tolerance Assessment Summary Pt still on lots of pain and able to educate pt on transitions and that her pain will subside after moving and to try not to anticipate the pain. Pt has a very supportive to be able to assist her at home when medically stable. Went over car transfers, possible need for a step as the car seat will be high for the pt, getting a BSC and use of pads at night, use of the FWW as a rail by the bed , and how to best incorporate her back precautions for ADL needs. Goals Self-Feeding Goal Independent Grooming Goal Independent Dressing Goal Independent,Photofinishing Laboratory Worker,Sock Aid Toileting Goal Independent Bathing Goal Independent Toilet Transfer Goal Independent Shower Transfer Goal Independent Patient/Caregiver Education Goal Demonstrate Post-Op Precautions Days to Meet Goals 15 Frequency of Treatment Frequency Of Treatment Once a Day Treatment Plan OT Treatment Plan ADL Training,Functional Cognition Training,Functional Mobility,Patient/Family Education,Discharge Planning Discharge Recommendations OT Discharge Recommendations Home with / Assist Available Transportation Needs at Discharge Private Vehicle
--- NOTE | 2023-05-27 11:58 | CM.DPC ---
Addendum entered by CAROLE Hancock 05/27/23 14:56: REGIONAL SALES COORDINATOR spoke with pt at bedside. Pt agreeable and eager to plan of dc home with family. Pt confirmed she does not want referral to HH at this time as she has a lot of support at home until she can participate in OP PT. No other dc needs at this time. CAROLE Waggoner Original Note: DCP Continued Reviewed EMR and team rounds for pt?s medical status. Per PT/OT, pt in a lot of pain and still not able to ambulate as much and orthostatic, anticipating to dc home with assist from /adult son. REGIONAL SALES COORDINATOR met with pt and at bedside. Pt was somnolent, in and out of sleep during conversation. Pt and were able to endorse that they are deferring to therapies recommendations although still declining SNF rehab referrals. Pt explains they feel comfortable with going home with OP PT when medically stable. Pt not anticipating to utilize HH although identified preferred agency is [facility]. Plan: Monitoring closely when pt medically stable to dc home with 24/7 assist (spouse and adult son who lives in home). Pt's will obtain a BSC from their [facility] before dc. Pt CM Team will continue to follow for coordination of discharge plans. CAROLE Waggoner
[2023-05-27 12:00] VITALS: BP 122/67; PULSE 82; RESP 18; TEMP 37.7; O2SAT 95
--- NOTE | 2023-05-27 12:47 | PT.IPTN ---
Current Diagnoses Spondylolisthesis, lumbar region (05/25/23) Spinal stenosis, lumbar region with neurogenic claudication (05/25/23) Surgery Performed Operation Date: 05/25/23 12:15 Actual Procedures p L3-4, L4-5 TLIF with posterior instrumentation -Robot - Shelly Camilo MD Physical Therapy Treatment Note M2 PT-IP Current Condition Start: 05/26/23 09:38 Freq: NEEDED Status: Active Protocol: Document 05/26/23 09:40 MB (Rec: 05/26/23 10:18 MB [id number]) Physical Therapy Current Condition Current Condition Evaluation Date 05/26/23 Treatment Diagnosis S/p TLIF L3-5 M3 PT-IP Subjective Start: 05/26/23 09:38 Freq: NEEDED Status: Active Protocol: Document 05/27/23 13:22 TS (Rec: 05/27/23 13:46 TS [id number]) Subjective Physical Therapy Visit Type Type Treatment Note Visit Start Time 12:47 Visit Stop Time 13:20 Number of DIRECTOR OF ORTHOPEDICS Visits 3 Physical Therapy Visit Comments Patient Comments Pt found resting in bed, reports feeling better this afternoon, pt is agreeable to PT. Therapy Pain Assessment Pain When Pain Assessed At Rest Pain Present Pain Present Pain Reported M4 PT-IP Mobility and Gait Start: 05/26/23 09:38 Freq: NEEDED Status: Active Protocol: Document 05/27/23 13:22 TS (Rec: 05/27/23 13:46 TS [id number]) PT-Bed Mobility Assessment Rolling Type of Rolling Log Rolling,Roll to Left Level of Assist Minimal Assistance,1 Person Assistance Supine to Sit Supine to Sit Maximum Assistance,1 Person Assistance Scooting Scooting to Edge of Bed Contact Guard Assistance PT-Transfer Assessment Sit to and From Stand Sit to and from Stand Minimal Assistance,1 Person Assistance,Use of Upper Extremities Equipment Transfer Assistive Device Gait Belt,Front Wheeled Walker Orthotic/Prosthetic Devices or Brace: No Comments Mobility Comments BP in supine 119/60. Logroll to L side Sneha with cues from spouse for sequencing. Supine to sit MaxA for uprighting trunk, pt required cues for sequencing. Pt scooted to EOB CGA from spouse. BP in sitting 107/66, pt reported some dizziness. STS from bed Sneha with use of FWW and assist from spouse. Pt denied dizziness in standing, BP 98/ 60. Pt ambulated ~125'CGA from spouse with FWW, pt denied any dizziness. Pt ambulated back to room, performed steps x3 with GASOLINE FINISHER assist CGA from spouse on step stool. Pt was left in chair, all needs met, RN notified. Gait Assessment Gait Gait Assistance Required: Contact Guard Assist,1 Person Assist Distance (Feet) 125 Assistive Devices Assistive Device Gait Belt,Front Wheeled Walker Orthotic/Prosthetic Devices or Brace: No Gait Deviations General Gait Pattern Antalgic,Decreased Stride Length,Decreased Feet Clearance,Step-to Gait Factors Limiting Gait Function Factors Limiting Gait Function Decreased Activity Tolerance, Decreased Strength,Pain,Poor Balance,Poor Safety Awareness Comments Gait Comments See mobility comments Stair Climbing Assessment Evaluation Level of Assist On Stairs Contact Guard Assistance,1 Person Assistance Technique/Endurance Stair Climbing Direction Ascend and Descend Stair Climbing Technique Step to Step Number of Steps Climbed 3 Comments Stair Climbing Comments Stair climbing AD-GASOLINE FINISHER PT-Balance Assessment Sitting Balance and Reactions Static Sitting Balance Ability Fair Dynamic Sitting Balance Ability Fair Standing Balance and Reactions Static Standing Balance Ability Fair Dynamic Standing Balance Ability Fair Device Used FWW M5 PT-IP Objective Assessments Start: 05/26/23 09:38 Freq: NEEDED Status: Active Protocol: Document 05/26/23 09:40 MB (Rec: 05/26/23 10:18 MB [id number]) Orientation Orientation/Cognition Level of Alertness Lethargic Orientation Name,Age,Birthday,Month,Date, Year,Day of Week,Place, Situation Language Function Ability No Deficits Noted Safety Awareness Decreased Safety Awareness Memory Description No Deficits Noted Comments Pt can answer orientation questions with increased time but does not appear to have proprioceptive and motor ability to follow functional commands this a.m. Gross Range of Motion Upper Extremity ROM Impairments Defer to OT Lower Extremity ROM Assessment Bilaterally Impaired Strength Lower Extremity Strength Assessment Bilaterally Impaired Comments Strength Comments Pt cannot follow range, MMT or sensory commands. She minimally extends each leg when asked sitting EOB Coordination Assessment Assessment Coordination Comments Pt cannot tolerate/respond to coordination testing Sensation Assessment Comments Sensation Comments Pt cannot tolerate/respond to coordination testing M6 PT-IP Treatment Start: 05/26/23 09:38 Freq: NEEDED Status: Active Protocol: Document 05/27/23 13:22 TS (Rec: 05/27/23 13:46 TS [id number]) Physical Therapy Treatment Education Education Provided Precautions,Post-Op Packet, Safety M7 PT-IP Assessment and Plan Start: 05/26/23 09:38 Freq: NEEDED Status: Active Protocol: Document 05/27/23 13:22 TS (Rec: 05/27/23 13:46 TS [id number]) PT Summary Assessment and Plan Potential Rehabilitation Potential Fair Summary Impairments Pain,ROM,Strength,Balance, Coordination,Sensation,Bed Mobility,Transfers,Gait, Activity Tolerance Progress Towards Goals Progressing Toward Goals Assessment Summary Bri is making good progress with her mobility this session. She continues to require MaxA for supine to sit and with max cues. She is Sneha for STS with FWW and assist from spouse. She progressed her gait to ~125' CGA from spouse, denied any dizziness. She progressed to stairs x3 with GASOLINE FINISHER from spouse , had no buckling or LOB. Her BP did drop in standing but denied any dizziness or lightheadedness, see vitals in mobility comments. PT is recommending pt return home with 24/7 assist and HHPT. Goals Bed Mobility Goal Independent Transfer Goal Independent,Front Wheeled Walker Gait Goal Independent,Front Wheel Walker Gait Distance 100 Other Goals Pt will ascend and descend 2 steps with LRAD and no more than CGA to allow safe home entrance. Days to Meet Goals 10 Frequency of Treatment Frequency Of Treatment Twice a Day Treatment Plan Physical Therapy Treatment Plan Bed Mobility Training,Transfer Training,Gait Training, Therapeutic Exercise,Balance Retraining,Post Op Education, Discharge Planning,Hot or Cold Pack,Neuromuscular Re-ed, Coordination Retraining,Manual Therapy Precautions Lumbar Precautions Log Roll,No Twisting,Limit Bending,Lifting Restriction of 10 lbs,Gait Belt above Incisional Area Weight Bearing Status Weight Bearing Status Weight Bear as Tolerated Recommendations To Nursing Amount of Assist Needed 2 Person Assist Discharge Recommendations PT Discharge Recommendations Home with 24/7 Assist Available,Home Health Transportation Needs at Discharge Private Vehicle
--- NOTE | 2023-05-27 14:36 | PC.NURSE ---
Addendum entered by Alex Ramos R.N. 05/27/23 14:52: Left unit at approx 1500 and headed home. Original Note: Day shift: Paperwork signed and all questions answered. Pt has all personal belongings. Spouse in room for d/c teachings. scrpts sent electronic to Pt's pharmacy. Dressing on back remains CDI and CMS intact. Pain well controlled per MAY today. Nausea resolved this afternoon without meds. Waiting for Pt to void post-[place]. Pt will be taken to car via and her spouse will be driving her home.
== END 2023-05-27 15:00 | disposition home or self-care (01) | DRG 455 ==
PROVIDERS: Nurse Anesthetist, Certified Registered; Admitting Provider Orthopaedic Surgery Orthopaedic Surgery of the Spine; PCP Internal Medicine; Referring Provider Orthopaedic Surgery Orthopaedic Surgery of the Spine; Visit Provider Orthopaedic Surgery Orthopaedic Surgery of the Spine
PROC: 0SG10AJ Fusion of 2 or more Lumbar Vertebral Joints with Interbody Fusion Device, Posterior Approach, Anterior Column, Open Approach (ICD-10-PCS; principal; 2023-05-25 12:15)
DX: M43.16 Spondylolisthesis, lumbar region (principal); M48.062 Spinal stenosis, lumbar region with neurogenic claudication; M51.16 Intervertebral disc disorders with radiculopathy, lumbar region; T88.59XA Other complications of anesthesia, initial encounter; R53.83 Other fatigue
CPT/HCPCS: 36415; 72100; 76000; 80048; 85014; 85018; 94760; 97161; 97167; 97530; 97535; A9270; C1713; C9290; J0136; J0330; J1100; J1170; J2060; J2250; J2405; J2704; J3010; J3410